=== PATIENT | male | born 1950 | race Caucasian/White ===

== ENCOUNTER 2018-07-17 09:58 | Emergency (ER) | payer OTHER, MEDICARE ==
[2018-07-17 10:35] VITALS: BP 132/66
--- NOTE | 2018-07-17 10:53 | EDM.PDOC ---
ED HPI GENERAL MEDICAL PROBLEM - General Chief Complaint: General Stated Complaint: BACK AND NECK PAIN Time Seen by Provider: 07/17/18 10:35 Source of Information: Reports: Patient History Limitations: Reports: Other (poor historian, brought along none of his old records) - History of Present Illness INITIAL COMMENTS - FREE TEXT/NARRATIVE: 68 yo male just returned from wintering in [place]. About a month before leaving [place] he presented to an ER for neck and back pain with radiation to his arms causing numbness and weakness. Their work up suggested pinching of nerves in his spine as the cause and suggested a referral to a neurosurgeon which he declined because he didn't want to delay his return to [place]. He was tx'd with oral corticosteroids and NSAID's which did not help. He is continuing to worsen since then. He has no local primary care provider. [facility], but did not [facility] them. He didn't bring any of the records from [place] along to [place]. He is asking for referral to [place]. Has had gabapentin in the past and did not like the way it made him feel. 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 (see below) (none) Neck Pain Score (Numeric/FACES): 7 Bilateral Arm Pain Score (Numeric/FACES): 7 Back Pain Score (Numeric/FACES): 7 Bilateral Leg Pain Score (Numeric/FACES): 7 - Related Data Allergies Allergy/AdvReac Type Severity Reaction Status Date / Time No Known Allergies Allergy Verified 07/17/18 10:23 Home Meds: Home Meds Amitriptyline [Elavil] 1 tab PO BEDTIME 12/19/13 [History] Aspirin 325 mg PO DAILY 12/19/13 [History] Hydrocodone/Acetaminophen [Hydrocodon-Acetaminophn 10-325] 1 tab PO Q4HR PRN [History] Lovastatin [Mevacor] 1 tab PO DAILY 12/19/13 [History] Omeprazole [Prilosec] 20 mg PO DAILY 12/19/13 [History] Prazosin [Minpress] 1 tab PO DAILY 12/19/13 [History] amLODIPine [Norvasc] 5 mg PO DAILY 12/19/13 [History] *Penicillin 2 tab PO Q8H 11/15/15 [History] Etodolac [Etodolac ER] 400 mg PO DAILY 11/15/15 [History] Colchicine 0.6 mg PO DAILY PRN 12/16/15 [History] Pregabalin [Lyrica] 100 mg PO DAILY 07/17/18 [History] Past Medical History HEENT History: Reports: Hard of Hearing, Impaired Vision Cardiovascular History: Reports: High Cholesterol, Hypertension Gastrointestinal History: Reports: Chronic Constipation Genitourinary History: Reports: Prostate Disorder Musculoskeletal History: Reports: Back Pain, Chronic, Osteoarthritis, Other ( See Below) Other Musculoskeletal History: peripheral neuropathy Psychiatric History: Reports: Anxiety, Depression, PTSD Endocrine/Metabolic History: Reports: Obesity/BMI 30+ Oncologic (Cancer) History: Reports: Prostate - Infectious Disease History Infectious Disease History: Reports: Chicken Pox, Measles, Mumps - Past Surgical History Head Surgeries/Procedures: Reports: None HEENT Surgical History: Reports: Cataract Surgery Cardiovascular Surgical History: Reports: None GI Surgical History: Reports: None Male Surgical History: Reports: Prostate Biopsy Endocrine Surgical History: Reports: None Musculoskeletal Surgical History: Reports: Carpal Tunnel, Hip Replacement, Knee Replacement, Shoulder Surgery Other Musculoskeletal Surgeries/Procedures:: bilat hips and knees, right shoulder Oncologic Surgical History: Reports: None Dermatological Surgical History: Reports: None Social & Family History - Tobacco Use Smoking Status *Q: Former Smoker Used Tobacco, but Quit: Yes Month/Year Tobacco Last Used: 1984 Second Hand Smoke Exposure: No - Caffeine Use Caffeine Use: Reports: Coffee - Alcohol Use Days Per Week of Alcohol Use: 7 Number of Drinks Per Day: 2 Total Drinks Per Week: 14 - Recreational Drug Use Recreational Drug Use: No ED ROS GENERAL - Review of Systems Review Of Systems: See Below Constitutional: Reports: No Symptoms HEENT: Reports: No Symptoms Respiratory: Reports: No Symptoms Cardiovascular: Reports: No Symptoms GI/Abdominal: Reports: No Symptoms : Reports: No Symptoms Musculoskeletal: Reports: Neck Pain, Back Pain Skin: Reports: No Symptoms Neurological: Reports: Numbness, Tingling, Weakness (numbness, weakness and tingling of both upper extrems.) Psychiatric: Reports: No Symptoms ED EXAM, GENERAL - Physical Exam Exam: See Below General Appearance: Alert, WD/WN, No Apparent Distress, Obese Eye Exam: Bilateral Eye: Normal Inspection Ears: Normal External Exam, Normal Canal, Hearing Grossly Normal Ear Exam: Bilateral Ear: Auricle Normal, Canal Normal, TM normal Nose: Normal Inspection, Normal Mucosa, No Blood Throat/Mouth: Normal Inspection, Normal Lips, Normal Oropharynx, Normal Voice, No Airway Compromise Head: Atraumatic, Normocephalic Neck: Normal Inspection, Limited Range of Motion. 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.) Neurological: Alert, Oriented, CN II-XII Intact, Normal Cognition, No Motor/ Sensory Deficits Psychiatric: Normal Affect, Normal Mood Skin Exam: Warm, Dry, Intact, Normal Color, No Rash Course - Vital Signs Last Recorded V/S: Last Vital Signs Temp 35.7 C 07/17/18 10:28 Pulse 74 07/17/18 10:28 Resp 19 07/17/18 10:28 BP 132/66 07/17/18 10:28 Pulse Ox 95 07/17/18 10:28 Departure - Departure Time of Disposition: 11:25 Disposition: Home, Self-Care 01 Condition: Fair Clinical Impression: Neck pain, Radicular neuropathy - Discharge Information *PRESCRIPTION DRUG MONITORING PROGRAM REVIEWED*: No *COPY OF PRESCRIPTION DRUG MONITORING REPORT IN PATIENT FITZ: No Instructions: Radicular Pain Referrals: PCP,None [Primary Care Provider] - Forms: ED Department Discharge Additional Instructions: The spine center at [place] will be contacting you for an appt. They will need your records from your ER visit in [place]. [facility].
== END 2018-07-17 11:37 | disposition home or self-care (01) ==
LOC: JP.ED 09:58
DX: M54.12 Radiculopathy, cervical region (principal); I10 Essential (primary) hypertension; E66.9 Obesity, unspecified; M19.90 Unspecified osteoarthritis, unspecified site; Z87.891 Personal history of nicotine dependence; Z79.82 Long term (current) use of aspirin; Z79.899 Other long term (current) drug therapy
CPT/HCPCS: 99283